=== PATIENT | female | born 1960 | race Caucasian/White ===

== ENCOUNTER → 2018-12-31 11:59 | Outpatient (CLI) | payer BC, SELFPAY ==
--- NOTE | 2018-12-31 | DI.MG.S_ITS ---
BILATERAL DIGITAL SCREENING MAMMOGRAM 3D/2D WITH CAD: 12/31/2018 CLINICAL: Routine screening. Family history of breast cancer. Comparison is made to exams dated: 10/18/2015 mammogram and 10/29/2016 mammogram - [facility]. The tissue of both breasts is heterogeneously dense. This may lower the sensitivity of mammography. Current study was also evaluated with a Computer Aided Detection (CAD) system. No significant masses, calcifications, or other findings are seen in either breast. There has been no significant interval change. IMPRESSION: NEGATIVE There is no mammographic evidence of malignancy. A 1 year screening mammogram is recommended. This exam was interpreted at Station ID: [id number]. NOTE: For mammograms, a report in lay terms will be sent to the patient. Approximately 15% of breast malignancies will not be visualized mammographically. In the management of a palpable breast mass, a negative mammogram must not discourage biopsy of a clinically suspicious lesion. Electronically Signed By: Jorge ferrell/dipak:01/02/2019 07:44:32 letter sent: Normal Exam ACR BI-RADS Category 1: Negative 3341F
== END ==
PROVIDERS: Visit Provider Student in an Organized Health Care Education/Training Program
DX: Z12.31 Encounter for screening mammogram for malignant neoplasm of breast (principal); Z80.3 Family history of malignant neoplasm of breast
CPT/HCPCS: 77063; 77067

== ENCOUNTER → 2020-01-13 07:58 | Outpatient (CLI) | payer BC, SELFPAY ==
--- NOTE | 2020-01-13 | DI.MG.S_ITS ---
BILATERAL DIGITAL SCREENING MAMMOGRAM 3D/2D WITH CAD: 01/13/2020 CLINICAL: Routine screening. Family history of breast cancer. Comparison is made to exams dated: 12/31/2018 mammogram - [facility], 10/29/2016 mammogram - [facility], 12/10/2017 mammogram, and 11/19/2017 mammogram - [facility]. There are scattered fibroglandular elements in both breasts. Current study was also evaluated with a Computer Aided Detection (CAD) system. No significant masses, calcifications, or other findings are seen in either breast. There has been no significant interval change. IMPRESSION: NEGATIVE There is no mammographic evidence of malignancy. A 1 year screening mammogram is recommended. This exam was interpreted at Station ID: [id number]. NOTE: For mammograms, a report in lay terms will be sent to the patient. Approximately 15% of breast malignancies will not be visualized mammographically. In the management of a palpable breast mass, a negative mammogram must not discourage biopsy of a clinically suspicious lesion. Electronically Signed By: Mendoza monroe/dipak:01/15/2020 08:08:44 letter sent: Normal Exam ACR BI-RADS Category 1: Negative 3341F
== END ==
PROVIDERS: PCP Student in an Organized Health Care Education/Training Program; Referring Provider Student in an Organized Health Care Education/Training Program; Visit Provider Student in an Organized Health Care Education/Training Program
DX: Z12.31 Encounter for screening mammogram for malignant neoplasm of breast (principal); Z80.3 Family history of malignant neoplasm of breast
CPT/HCPCS: 77063; 77067

== ENCOUNTER → 2021-01-18 09:33 | Outpatient (CLI) | payer BC, SELFPAY ==
--- NOTE | 2021-01-18 | DI.MG.S_ITS ---
BILATERAL DIGITAL SCREENING MAMMOGRAM 3D/2D WITH CAD: 01/18/2021 CLINICAL: Routine screening. Family history of breast cancer. Comparison is made to exams dated: 01/13/2020 mammogram, 12/31/2018 mammogram - [facility], and 12/10/2017 mammogram - [facility]. There are scattered fibroglandular elements in both breasts. Current study was also evaluated with a Computer Aided Detection (CAD) system. No significant masses, calcifications, or other findings are seen in either breast. There has been no significant interval change. IMPRESSION: NEGATIVE There is no mammographic evidence of malignancy. A 1 year screening mammogram is recommended. This exam was interpreted at Station ID: [id number]. NOTE: For mammograms, a report in lay terms will be sent to the patient. Approximately 15% of breast malignancies will not be visualized mammographically. In the management of a palpable breast mass, a negative mammogram must not discourage biopsy of a clinically suspicious lesion. Electronically Signed By: Jorge ferrell/dipak:01/20/2021 09:00:57 letter sent: Normal Exam ACR BI-RADS Category 1: Negative 3341F
== END ==
PROVIDERS: PCP Student in an Organized Health Care Education/Training Program; Referring Provider Student in an Organized Health Care Education/Training Program; Visit Provider Student in an Organized Health Care Education/Training Program
DX: Z12.31 Encounter for screening mammogram for malignant neoplasm of breast (principal); Z80.3 Family history of malignant neoplasm of breast
CPT/HCPCS: 77063; 77067

== ENCOUNTER → 2021-12-10 13:27 | Outpatient (CLI) | payer BC, SELFPAY ==
--- NOTE | 2021-12-10 | DI.MG.S_ITS ---
BILATERAL DIGITAL DIAGNOSTIC MAMMOGRAM 3D/2D: 12/10/2021 CLINICAL: Bilateral breast lumps. Comparison is made to exams dated: 01/18/2021 mammogram, 01/13/2020 mammogram, 12/31/2018 mammogram - [facility], and 12/10/2017 mammogram - [facility]. Both breasts are heterogeneously dense, which may obscure small masses (category c / 51-75% glandular tissue). No significant masses, calcifications, or other findings are seen in either breast. There has been no significant interval change. IMPRESSION: NEGATIVE There is no mammographic evidence of malignancy. A 1 year screening mammogram is recommended. Based on Tyrer-Cuzick model (a risk assessment model), the patient's lifetime risk is 21.3% and her 10 year risk is 8.9%. If a patient has an elevated risk, a more comprehensive evaluation should be considered and/or a referral to a genetic counselor. The [place] [employer], [employer], and NCCN Guidelines advise the consideration of Breast MRI as an adjunct to screening mammography in patients whose Lifetime risk to develop breast cancer is 20% or higher. This exam was interpreted at Station ID: [id number]. NOTE: For mammograms, a report in lay terms will be sent to the patient. Approximately 15% of breast malignancies will not be visualized mammographically. In the management of a palpable breast mass, a negative mammogram must not discourage biopsy of a clinically suspicious lesion. Electronically Signed By: Mayco lindsey/dipak:12/10/2021 13:55:45 letter sent: Normal Exam ACR BI-RADS Category 1: Negative 3341F
== END ==
PROVIDERS: PCP Internal Medicine; Referring Provider Internal Medicine; Visit Provider Internal Medicine
DX: N63.10 Unspecified lump in the right breast, unspecified quadrant (principal); N63.20 Unspecified lump in the left breast, unspecified quadrant; Z13.820 Encounter for screening for osteoporosis; M85.851 Other specified disorders of bone density and structure, right thigh; M85.852 Other specified disorders of bone density and structure, left thigh; Z78.0 Asymptomatic menopausal state; E03.9 Hypothyroidism, unspecified
CPT/HCPCS: 77066; 77080; G0279

== ENCOUNTER → 2021-12-25 | Outpatient (CLI) | payer SELFPAY | LOC: RAD 11:11 | PROVIDERS: PCP Internal Medicine; Referring Provider Internal Medicine; Visit Provider Internal Medicine | DX: Z13.89 Encounter for screening for other disorder (principal) ==

== ENCOUNTER → 2023-01-06 09:54 | Outpatient (CLI) | payer BC, SELFPAY ==
--- NOTE | 2023-01-06 | DI.MG.S_ITS ---
BILATERAL DIGITAL SCREENING MAMMOGRAM 3D/2D WITH CAD: 01/06/2023 CLINICAL: Routine screening. Family history of breast cancer. Comparison is made to exams dated: 12/10/2021 mammogram, 01/18/2021 mammogram, and 01/13/2020 mammogram - [facility]. Both breasts are heterogeneously dense, which may obscure small masses (category c / 51-75% glandular tissue). Current study was also evaluated with a Computer Aided Detection (CAD) system. No significant masses, calcifications, or other findings are seen in either breast. IMPRESSION: NEGATIVE There is no mammographic evidence of malignancy. A 1 year screening mammogram is recommended. Based on Tyrer-Cuzick model (a risk assessment model), the patient's lifetime risk is 20.8% and her 10 year risk is 9.0%. If a patient has an elevated risk, a more comprehensive evaluation should be considered and/or a referral to a genetic counselor. The [place] [employer], [employer], and NCCN Guidelines advise the consideration of Breast MRI as an adjunct to screening mammography in patients whose Lifetime risk to develop breast cancer is 20% or higher. This exam was interpreted at Station ID: [id number]. NOTE: For mammograms, a report in lay terms will be sent to the patient. Approximately 15% of breast malignancies will not be visualized mammographically. In the management of a palpable breast mass, a negative mammogram must not discourage biopsy of a clinically suspicious lesion. Electronically Signed By: Kasey venegas/dipak:01/06/2023 11:15:24 letter sent: Normal Exam ACR BI-RADS Category 1: Negative 3341F
== END ==
PROVIDERS: PCP Internal Medicine; Referring Provider Internal Medicine; Visit Provider Internal Medicine
DX: Z12.31 Encounter for screening mammogram for malignant neoplasm of breast (principal); Z80.3 Family history of malignant neoplasm of breast
CPT/HCPCS: 77063; 77067

== ENCOUNTER → 2024-01-13 08:14 | Outpatient (CLI) | payer OTHER, SELFPAY ==
--- NOTE | 2024-01-13 08:16 | DI.MG.S_ITS ---
BILATERAL DIGITAL SCREENING MAMMOGRAM 3D/2D WITH CAD: 01/13/2024 CLINICAL: Routine screening. Family history of breast cancer. Comparison is made to exams dated: 01/06/2023 mammogram, 12/10/2021 mammogram, and 01/18/2021 mammogram - [facility]. The breasts are heterogeneously dense, which may obscure small masses (category c / 51-75% glandular tissue). Current study was also evaluated with a Computer Aided Detection (CAD) system. No significant masses, calcifications, or other findings are seen in either breast. There has been no significant interval change. IMPRESSION: NEGATIVE There is no mammographic evidence of malignancy. A 1 year screening mammogram is recommended. Based on Tyrer-Cuzick model (a risk assessment model), the patient's lifetime risk is 20.3% and her 10 year risk is 9.1%. If a patient has an elevated risk, a more comprehensive evaluation should be considered and/or a referral to a genetic counselor. The [place] [employer], [place] [employer], and NCCN Guidelines advise the consideration of Breast MRI as an adjunct to screening mammography in patients whose Lifetime risk to develop breast cancer is 20% or higher. This exam was interpreted at Station ID: [id number]. NOTE: For mammograms, a report in lay terms will be sent to the patient. Approximately 15% of breast malignancies will not be visualized mammographically. In the management of a palpable breast mass, a negative mammogram must not discourage biopsy of a clinically suspicious lesion. Electronically Signed By: Jorge ferrell/dipak:01/14/2024 07:00:40 letter sent: Normal Exam ACR BI-RADS Category 1: Negative
== END ==
PROVIDERS: PCP Internal Medicine; Referring Provider Internal Medicine; Visit Provider Internal Medicine
DX: Z12.31 Encounter for screening mammogram for malignant neoplasm of breast (principal); Z80.3 Family history of malignant neoplasm of breast; R92.333 Mammographic heterogeneous density, bilateral breasts
CPT/HCPCS: 77063; 77067

== ENCOUNTER → 2024-02-01 09:42 | Outpatient (CLI) | payer OTHER, SELFPAY ==
--- NOTE | 2024-02-01 09:43 | DI.RAD.S_ITS ---
PROCEDURE: XR DEXA AXIAL SKELETON INDICATIONS: MENOPAUSE / OSTEOPENIA COMPARISON: [facility], CR, XR DEXA AXIAL SKELETON, 12/10/2021, 14:59. FINDINGS: Lumbar Spine: Bone mineral density 1.053 g/cm2, T score 0.1. There is interval 0.8% decrease in total lumbar spine bone mineral density. Left Hip: Bone mineral density 0.807 g/cm2, T score -1.1. There is interval 1.8% increase in total left hip bone mineral density. Left Femoral Neck: Bone mineral density 0.668 g/cm2, T score -1.6. There is interval 2.5% decrease in left femoral neck bone mineral density. Right Hip: Bone mineral density 0.832 g/cm2, T score -0.9. There is interval 0.4% decrease in right hip bone mineral density. Right Femoral Neck: Bone mineral density 0.665 g/cm2, T score -1.7. There is interval 5.4% decrease in right femoral neck bone mineral density. Fracture Risk Calculation (when applicable): 10-year fracture risk of a major osteoporotic fracture 8.4 percent and of a hip fracture 0.9 percent. (T score greater or equal to -1.0 to: NORMAL) (T score from -1.1 to -2.4: OSTEOPENIA) (T score less than or equal to -2.5: OSTEOPOROSIS) IMPRESSION: Osteopenia with increased 10 year fracture risk. Follow-up guidelines as follows: Osteoporosis: Consider a repeat DEXA and Vertebral Fracture Assessment (VFA) exam in 2 years or sooner if medically necessary, to reassess this patient's status. Osteopenia: Consider a repeat DEXA in 2-3 years to reassess this patient's status, or if there is a new clinical indication. Normal: Consider a repeat DEXA in 5 years or sooner, or if there is a new clinical indication. All treatment decisions require clinical judgment and consideration of individual patient factors, including patient preferences, comorbidities, previous drug use, risk factors not captured in the FRAX model (e.g., frailty, falls, vitamin D deficiency, increased bone turnover, interval significant decline in bone density ) and possible under- or over-estimation of fracture risk by FRAX. In addition, the NOF Guide recommends that FDA-approved medical therapies be considered in postmenopausal women and men age >= 50 years with a: * Hip or vertebral (clinical or morphometric) fracture * T-score of <=-2.5 at the spine or hip * Ten-year fracture probability by FRAX of >= 3% for hip fracture or >=20% for major osteoporotic fracture. People with diagnosed cases of osteoporosis or at high risk for fracture should have regular bone mineral density tests. For patients eligible for Medicare, routine testing is allowed once every 2 years. The testing frequency can be increased to one year for patients who have rapidly progressing disease, those who are receiving or discontinuing medical therapy to restore bone mass, or have additional risk factors. Dictated by: Christopher Grubbs M.D. on 02/01/2024 at 17:11 Approved by: Christopher Grubbs M.D. on 02/01/2024 at 17:14
== END ==
PROVIDERS: PCP Internal Medicine; Referring Provider Internal Medicine; Visit Provider Internal Medicine
DX: M85.89 Other specified disorders of bone density and structure, multiple sites (principal); Z78.0 Asymptomatic menopausal state
CPT/HCPCS: 77080

== ENCOUNTER → 2024-05-18 08:24 | Outpatient (CLI) | payer BC, SELFPAY ==
--- NOTE | 2024-05-18 08:27 | DI.US.S_ITS ---
PROCEDURE: US RENAL COMPLETE INDICATIONS: RENAL INSUFFICIENCY TECHNIQUE: Real-time scanning was performed of the kidneys and bladder, with image documentation. COMPARISON: None. FINDINGS: Kidneys: Kidneys are normal in size. Right kidney measures 9.3 cm long; left kidney measures 9.7 cm long. Right renal cortical thickness is 1.6 cm; left renal cortical thickness is 1.6 cm. Renal cortical echotexture is increased. No hydronephrosis or nephrolithiasis. No suspicious solid mass lesions. Bladder: Pre-void bladder volume is 53 mL. Post-void residual is 0 mL. Pre-void images demonstrate no intraluminal masses or stones. On pre-void images, both ureteral jets are noted with color Doppler interrogation. (Of note, ureteral jets may not be detectable in up to 25% of cases due to insufficient differences in specific gravity between ureteral and bladder urine). Miscellaneous: No free pelvic fluid. IMPRESSION: Increased renal cortical echogenicity, consistent with chronic parenchymal disease. Dictated by: Irvin Allan M.D. on 05/18/2024 at 17:03 Approved by: Irvin Allan M.D. on 05/18/2024 at 17:04
== END ==
PROVIDERS: PCP Registered Nurse; Referring Provider Registered Nurse; Visit Provider Registered Nurse
DX: N28.9 Disorder of kidney and ureter, unspecified (principal)
CPT/HCPCS: 76770

== ENCOUNTER → 2024-12-14 15:10 | Outpatient (CLI) | payer BC, SELFPAY ==
[2024-12-14 16:49] LABS: Alanine Aminotransferase 18 IU/L (<35); Albumin 4.7 g/dL (3.5-5.0); Albumin Globulin Ratio 1.3 (1.0-2.8); Alkaline Phosphatase 97 U/L (38-126); Blood Urea Nitrogen 22 mg/dL (7-17); Calcium 10.0 mg/dL (8.4-10.2); Carbon Dioxide 27 mmol/L (22-32); Chloride 101 mmol/L (98-107); Estimated Glomerular Filt Rate > 60 mL/min (>60); Globulin 3.6 g/dL (1.7-4.1); Glucose 90 mg/dL (70-99); HEMOLYSIS < 15 (0-50); Potassium 4.9 mmol/L (3.4-5.1); Sodium 140 mmol/L (137-145); Total Protein 8.3 g/dL (6.3-8.2)
[2024-12-14 17:21] LABS: Vitamin D 25 Hydroxy (D3) 61.4 ng/mL (30.0-100.0)
[2024-12-14 17:38] LABS: TSH w/ Reflex to FT4 3.22 uIU/mL (0.47-4.68)
== END ==
PROVIDERS: PCP Registered Nurse; Referring Provider Registered Nurse; Visit Provider Registered Nurse
DX: E03.9 Hypothyroidism, unspecified (principal); N28.9 Disorder of kidney and ureter, unspecified; S22.20XD Unspecified fracture of sternum, subsequent encounter for fracture with routine healing; M85.89 Other specified disorders of bone density and structure, multiple sites
CPT/HCPCS: 36415; 80053; 82306; 84443

== ENCOUNTER 2025-01-18 12:39 | Day surgery (SDC) | payer BC, SELFPAY ==
--- NOTE | 2025-01-18 07:03 | PM.HP.IH.1 ---
History of Present Illness History of Present Illness Date Patient Seen: 01/18/25 Time Patient Seen: 07:03 Chief complaint: Colonoscopy Narrative: Patient presents for screening colonoscopy today. Meds Home Medications and Allergies Home Medications ?Medication ?Instructions ?Recorded ?Confirmed ?Type sodium,potassium,mag sulfates 17.5 See Rx Instructions PO .COMPLEX 11/27/24 12/29/24 Rx gram-3.13 gram-1.6 gram oral soln #354 mL (Suprep Bowel Prep Kit) levothyroxine 50 mcg tablet 50 mcg PO DAILY 12/29/24 12/29/24 History Allergies Allergy/AdvReac Type Severity Reaction Status Date / Time No Known Allergies Allergy Verified 12/29/24 09:43 Exam Narrative Exam Narrative: Const General: comfortable Orientation: alert and oriented x3 Resp Effort & Inspection: normal respiratory effort and able to speak in complete sentences Cardio Rate: regular rate GI Palpation: soft (NT) Extrem General: no pedal edema and no calf tenderness Assessment & Plan Assessment and plan (1) Encounter for screening colonoscopy: Status: Acute Plan Plan screening colonoscopy, possible biopsy. The risks, benefits and options regarding the procedure were explained to the patient in detail. Risk discussion included but not limited to: bleeding, perforation, missed lesion, unable to reach cecum. The patient was encouraged to ask questions and they were answered to their satisfaction. The patient understands and is agreeable to proceed. Time-Based Coding :: [TOTAL MINUTES] spent with patient and on the chart (including review of chart, obtaining history, exam, reviewing outside data, placing orders, documenting exam and treatment plan, and counseling patient) on [DATE]. PROFEE Travel Professional Document charge(s): Yes Charge Codes Inpatient/observation care including admit and discharge same day: [id number]
[2025-01-18 12:58] VITALS: BP 108/66; PULSE 67; RESP 16; TEMP 36.1; O2SAT 99
--- NOTE | 2025-01-18 13:55 | PM.OP.COLON ---
Operative Date/Time/Diagnoses Date of procedure: 01/18/25 Time of procedure: 14:52 Pre-op diagnosis: H/O colon polyp, enterocolonic fistula Post-op diagnosis: other (sigmoid diverticulosis, enterocolonic fistula) Procedure & Clinicians Study performed: Colonoscopy Same procedure(s) as scheduled: Yes Indications: 64yo F, h/o colon polyp, enterocolonic fistula Surgeon: Lee Kirk Anesthesia Type: None Procedure Notes SCOAP/Timeout: Performed Procedure in detail: Colonoscopy Patient placed in left lateral recumbent position. Time out was performed. Patient did not want sedation. Examination began with a thorough inspection of the perianal area. There was no evidence of fissures, fistulae, external hemorrhoids or cutaneous malignancy. The colonoscope was then placed into the rectum and the lumen was insufflated with carbon dioxide. The scope was carefully advanced forward. Ultimately the cecum was intubated and confirmed by identification of the ileocecal valve, the appendiceal orifice and the confluence of the taenia. The scope was then slowly withdrawn examining the colon thoroughly in all directions. In the rectum, retroflexion of the scope was performed for inspection of the distal rectum and anal canal. ?Significant colonoscopy findings: ?1. Quality of the preparation-good, [place] 2-3, improved with irrigation/suction ?2. Sigmoid diverticulosis, narrowing in sigmoid, possible diverticulitis 3. 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 Unclear etiology. No evidence for inflammatory bowel disease, possible fistula due to diverticulitis 4. 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
--- NOTE | 2025-01-18 13:58 | SUR.OPER ---
Patient counseled with Dr Kirk and declined anesthesia. Vitals monitored by Claudia Espinosa RN.
--- NOTE | 2025-01-18 14:57 | SUR.OPER ---
Patient elected no anesthesia for colonoscopy. In room 1354, end 1444. Patient tolerated procedure well using deep breathing when uncomfortable. Oxygen delivered through nasal cannula at 2L. Vitals monitored every 5 minutes throughout procedure.
== END 2025-01-18 15:14 | disposition home or self-care (01) ==
PROVIDERS: Surgery; PCP Registered Nurse; Referring Provider Registered Nurse; Visit Provider Surgery
PROC: 0DJD8ZZ Inspection of Lower Intestinal Tract, Via Natural or Artificial Opening Endoscopic (ICD-10-PCS; CPT 45378; principal; 2025-01-18 13:45)
DX: Z12.11 Encounter for screening for malignant neoplasm of colon (principal); Z86.0100 Personal history of colon polyps, unspecified; K57.30 Diverticulosis of large intestine without perforation or abscess without bleeding; K63.2 Fistula of intestine
CPT/HCPCS: 45378

== ENCOUNTER → 2025-02-23 17:09 | Outpatient (CLI) | payer BC, SELFPAY ==
--- NOTE | 2025-02-23 17:10 | DI.MG.S_ITS ---
MM screening mammo BI: 02/23/2025. BI-RADS: 1 CLINICAL: 64-year old female for bilateral screening mammogram. Tyrer-Cuzick lifetime risk of 15.0%. Current reported family history of breast cancer: maternal grandmother and sister. PRIOR EXAMS 01/13/2024, 01/06/2023, 12/10/2021, 01/18/2021. MAMMOGRAPHY TECHNIQUE: 2D and 3D (tomosynthesis) digital mammographic views obtained, with additional images as needed for full coverage. Current study was also evaluated with a Computer Aided Detection (CAD) system. DENSITY C. The breasts are heterogeneously dense, which may obscure small masses. MAMMOGRAPHY FINDINGS Bilateral: No suspicious mass, asymmetry, microcalcification, or other abnormality seen. IMPRESSION: * No evidence of malignancy. RECOMMENDATIONS Bilateral * Annual screening mammography. OVERALL ASSESSMENT CATEGORY BI-RADS-1: Negative. The [employer] [employer] recommends annual screening mammography beginning at age 40 for women with average risk of breast cancer. ELECTRONICALLY SIGNED: Jorge Buck M.D. on 02/26/2025 at 07:09:58 AM PT Interpreting Station ID: [id number]
== END ==
LOC: MAMMO 17:09
PROVIDERS: PCP Registered Nurse; Referring Provider Registered Nurse; Visit Provider Registered Nurse
DX: Z12.31 Encounter for screening mammogram for malignant neoplasm of breast (principal); Z80.3 Family history of malignant neoplasm of breast; R92.333 Mammographic heterogeneous density, bilateral breasts
CPT/HCPCS: 77063; 77067